=== PATIENT | female | born 1975 | race Caucasian/White ===

== ENCOUNTER 2017-04-18 14:56 | Emergency (ER) | payer BC ==
[~2017-04-18] VITALS: Ht 160 cm; Wt 95.3 kg
--- OUTSIDE RECORDS SUMMARY | 2017-04-18 15:15 | External Medical Summary Rpt ---
Author Author [employer] Organization [employer] Address Unknown Phone Unavailable Purpose Continuity of Care Document - through 2016
--- OUTSIDE RECORDS SUMMARY | 2017-04-18 15:15 | External Medical Summary Rpt ---
Author Author , Organization [employer] Address Unknown Phone Unavailable Purpose Continuity of Care Document - 02-01-2017 through 2016 Problems Code Diagnosis DOS Provider Status Z12.31 ENCOUNTER 02-01-2017 FOR SCREENING MAMMOGRAM FOR MALIGNANT NEOPLASM OF BREAST
--- OUTSIDE RECORDS SUMMARY | 2017-04-18 15:15 | External Medical Summary Rpt ---
Author Author MARGARITA Nicole, [employer] Organization [employer] Address Unknown Phone Unavailable
--- OUTSIDE RECORDS SUMMARY | 2017-04-18 15:15 | External Medical Summary Rpt ---
Demographics Preferred Language Ivorian Marital Status Unknown Baptism Affiliation Unknown Race Unknown Ethnic Group Unknown Author Author , Organization [employer] Address Unknown Phone Unavailable Purpose Continuity of Care Document - through 2016 Immunization No patient found.
--- OUTSIDE RECORDS SUMMARY | 2017-04-18 15:15 | External Medical Summary Rpt ---
Demographics Preferred Language Australian Marital Status Unknown Mu-Ism Affiliation Unknown Race Unknown Ethnic Group Unknown Author Author , Organization [employer] Address Unknown Phone Unavailable Purpose Continuity of Care Document - through 2016 Immunization No patient found.
[2017-04-18 15:18] LABS: URINE BILIRUBIN - DIPSTICK NEGATIVE (NEG)
[2017-04-18 15:19] LABS: URINE BLOOD NEGATIVE (NEG)
[2017-04-18] MEDS ORDERED: WELLBUTRIN XL300 MG PO (15:34)
[2017-04-18] MEDS ORDERED: GABAPENTIN300 MG PO (15:34)
[2017-04-18 15:47] LABS: HEMOGLOBIN 14.1 g/dL (12.2-16.2); LYMPH # 1.8 K/mm3 (0.7-4.5); LYMPH % 26.5 % (10-50.0)
--- NOTE | 2017-04-18 16:32 | RADIOLOGY REPORT PS360 ---
CT ABD PELVIS W/ CONTRAST COMPARISON: None HISTORY: Right lower quadrant pain for several months TECHNIQUE: Multiaxial scans obtained from the hemidiaphragms the pelvic floor and were performed with IV contrast only. Sagittal and coronal reformats were evaluated as well. FINDINGS: The lower lung lopez are clear. The liver spleen stomach and pancreas appear normal, there has been a previous cholecystectomy. The adrenal glands are normal. The kidneys are normal size and show symmetrical function both appearing normal. The small bowel unremarkable. The appendix is well-visualized and partially air-filled and normal in caliber. There is moderate scattered stool in ascending and transverse colon. The uterus and adnexa are normal. The urinary bladder is well filled and appears normal. There is no free fluid in the pelvis. IMPRESSION: Essentially unremarkable CT scan abdomen and pelvis, no acute abdominal or pelvic pathology identified
--- NOTE | 2017-04-18 16:52 | Emergency Room Report ---
History of Present Illness Time Seen by [id number] Presenting Problem in Triage Pt arrived:Walked Presenting Problem:ABD DISCOMFORT THAT HAS INCR OVERNIGHT. 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 Y Clinical Suspician of Infection? N Mental Status: 1 - Regular (Normal Baseline) Sepsis Risk:Low Sepsis Risk Have you (or family members/close friends) recently traveled outside the [place]? N If Yes, where/when: Have you had exposure to infectious disease within the past month? TB? Other? Specify: Source patient, RN notes reviewed, family, old records Exam Limitations no limitations Comment pt with ongoing back pain over the last few weeks which rad to her ant abd/groin and is worse with mov and no fever/rash or support services specialist sx Cardiac Chest Pain Chest pain indicative of cardiac No Timing/Duration this evening Severity moderate ALLERGIES Coded Allergies: Penicillins (Mild, 04/18/17) sulfamethoxazole (From BACTRIM) (Mild, 04/18/17) trimethoprim (From BACTRIM) (Mild, 04/18/17) Home Medications Reported Medications BUPROPION HCL (Wellbutrin XL 300MG) 300 MG PO DAILY Gabapentin (Gabapentin 300MG) 300 MG PO QHS History Medical History General CAD? No Angina: No [place]: No Hypertension? No Hyperlipidemia? No CHF? No DVT? No PE? No COPD? No Asthma? No Anemia? No GERD? No Gastric ulcers? No GI Bleed? No Hernia? No Thyroid Problems? No Hypothyroidism? No CVA? No Seizures? No Diabetes? No Renal Insuffiency? No End Stage Renal Disease? No UTI? No Stones? No BPH? No GB Disease: Yes Nephritic Syndrome? No Asplenia? No Hepatitis? No Sickle Cell Disease? No Arthritis? No Migraines? No Cataracts? No Glaucoma? No MRSA? No HIV? No TB? No Anxiety? No Depression? No Cancer? No More? 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 Respiratory denies cough, denies shortness of breath, denies wheezing Cardiovascular denies chest pain, denies palpitations, denies syncope Gastrointestinal denies abdominal pain, denies diarrhea, denies vomiting Genitourinary denies: dysuria, frequency, hesitancy, hematuria. Musculoskeletal see HPI, denies back pain, denies joint pain, denies joint swelling, denies neck pain, other Skin denies rash Psychiatric/Neurological denies headache, denies seizure Physical Exam Vital Signs Vital Signs Date Time Temp Pulse Resp B/P Pulse O2 O2 Flow FiO2 Ox Delivery Rate 04/18 1705 18 04/18 1531 98.4 94 18 158/90 98 06/04 1511 98.4 102 18 147/94 100 - WBC >12,000 or <4,000 or 10% bands? 2 or more SIRS Criteria Met? B/P:158/90 MAP:112 Creatinine >2.0? UA output<0.5ml/kg/hr for 2 hrs? Platelet count >100,000? Lactate >2.0mmol/1? INR >1.2 or PTT > than 60 sec? Evidence of Organ Dysfunction? Provider documented clinical suspician of infection? N Sepsis Criteria Count: 1 Sepsis Risk: Low Sepsis Risk General Appearance no apparent distress Eye Exam - bilateral eye PERRL, bilateral eye EOMI Ear, Nose, Throat normal ENT inspection Neck supple Respiratory Status No: respiratory distress. Cardiovascular regular rate/rhythm Peripheral Pulses Pulses normal Yes Gastrointestinal soft, no organomegaly, no pulsatile mass, no guarding, no rebound Back no vertebral tenderness, bowel/bladder continent, decreased range of motion , strt leg raising(R)-NML, rt si jt pain Extremities normal range of motion, normal inspection Strength 4 Upper Ext (L), 4 Upper Ext (R), 4 Lower Ext (L), 4 Lower Ext (R) Neurologic alert, admissions clinician II-XII nml as tested, no motor/sensory deficits Reflexes Reflexes normal No Mental status normal mood/affect Skin no rash cons.w/shingles Medical Decision Making LABS/Meds/Orders Pt receiving controlled substance in ED? No Results/Orders Laboratory Tests 04/18/17 1530: ESR Pending 04/18/17 1530: Sodium 138, Potassium 3.7, Chloride 102, Carbon Dioxide 28, BUN 10, Creatinine 0.8, Estimated Creat Clear 138, Estimated GFR (MDRD) 79, Glucose 111 H, Calcium 8.8, Total Bilirubin 0.3, AST 10 L, ALT 25, Alkaline Phosphatase 94, Total Protein 7.7, Albumin 3.9, Globulin 3.8 H, Albumin/Globulin Ratio 1.0 L, Amylase 67, Lipase 186, WBC 6.8, RBC 4.58, Hgb 14.1, Hct 42.1, MCV 92.0, RDW 12.4, Plt Count 180, MPV 7.2 L, Gran % 67.1, Gran # 4.5, Lymphocytes % 26.5, Monocytes % 3.7, Eosinophils % 2.3, Basophils % 0.4, Lymphocytes # 1.8, Monocytes # 0.3, Eosinophils # 0.2, Basophils # 0.0, PUBS MCHC 33.6, MCH 30.9 04/18/17 1504: Urine Color YELLOW, Urine Appearance Clear, Urine pH 6.0, Ur Specific [place] 1.010, Urine Protein NEGATIVE, Urine Ketones NEGATIVE, Urine Blood NEGATIVE, Urine Nitrate NEGATIVE, Urine Bilirubin NEGATIVE, Urine Urobilinogen 0.2, Ur Leukocyte Esterase NEGATIVE, Urine Glucose NEGATIVE Current Medication Orders Sig/Alison Start time Last Medication Dose Route Stop Time Status Admin Ketorolac 30 MG ONCE ONE 04/18 1700 DC 04/18 Tromethamine IV 04/18 1701 1705 Methylprednisolone 125 MG ONCE ONE 04/18 1700 DC / Sodium Succinate IV 04/18 1701 1704 Methylprednisolone 0 .STK-MED ONE 04/18 1658 DC Sodium Succinate .ROUTE Ketorolac 0 .STK-MED ONE 04/18 1657 DC Tromethamine .ROUTE Iopamidol 75 ML ONCE ONE 04/18 1615 UNV 04/18 IV 04/18 1616 1608 Sodium Chloride 10 ML PRN PRN 04/18 1615 UNV 04/18 IV 04/18 1738 1608 Sodium Chloride 10 ML PRN PRN 04/18 1545 AC IV 04/19 1538 Orders Procedure Date/time Status DIET-NOTHING BY MOUTH 04/18 D Active SED RATE 04/18 1651 Active C-REACTIVE PROTEIN 04/[address] ABD/PELVIS REQ 04/18 1538 Complete IV SALINE LOCK 04/18 1538 Active LIPASE 04/18 1538 Complete CBC WITH AUTO DIFF 04/18 1538 Complete CHEM 12 PROFILE 04/18 1538 Complete AMYLASE 04/18 1538 Complete UTC URINE 04/18 1523 Active UTC URINE DIPSTICK 04/18 1504 Complete XRAY/CT/US XRAY/CT/US CT abdomen, pelvis CT interpretation by discussed w/radiologist Time results known: 1704 CT Results normal/NAD Departure Departure Time of Disposition 1704 Disposition DC Home or Self Care(routine) Clinical Impression Primary Impression: Back pain Qualifiers: Back pain location: low back pain Chronicity: acute Back pain laterality: right Sciatica presence: without sciatica Qualified Code: M54.5 - Low back pain Condition STABLE Referrals JORGE A BULLARD (Family) Patient Instructions DI for Low Back Pain Additional Instructions use meds and see pcp for follow up Discharge Counseling Counseled pt/family regarding diagnosis, test results, medications/RX, follow up needs Prescriptions Current Visit Scripts Prednisone (Prednisone 20MG) 20 MG PO BID #10 TAB ED Critical Care Critical Care No at 1706
--- NOTE | 2017-04-18 16:52 | Emergency Room Report ---
History of Present Illness Time Seen by [id number] Presenting Problem in Triage Pt arrived:Walked Presenting Problem:ABD DISCOMFORT THAT HAS INCR OVERNIGHT. 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 Y Clinical Suspician of Infection? N Mental Status: 1 - Regular (Normal Baseline) Sepsis Risk:Low Sepsis Risk Have you (or family members/close friends) recently traveled outside the [place]? N If Yes, where/when: Have you had exposure to infectious disease within the past month? TB? Other? 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 No Angina: No [place]: No Hypertension? No Hyperlipidemia? No CHF? No DVT? No PE? No COPD? No Asthma? No Anemia? No GERD? No Gastric ulcers? No GI Bleed? No Hernia? No Thyroid Problems? No Hypothyroidism? No CVA? No Seizures? No Diabetes? No Renal Insuffiency? No End Stage Renal Disease? No UTI? No Stones? No BPH? No GB Disease: Yes Nephritic Syndrome? No Asplenia? No Hepatitis? No Sickle Cell Disease? No Arthritis? No Migraines? No Cataracts? No Glaucoma? No MRSA? No HIV? No TB? No Anxiety? No Depression? No Cancer? No More? 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 Respiratory denies cough, denies shortness of breath, denies wheezing Cardiovascular denies chest pain, denies palpitations, denies syncope Gastrointestinal denies abdominal pain, denies diarrhea, denies vomiting Genitourinary denies: dysuria, frequency, hesitancy, hematuria. Musculoskeletal see HPI, denies back pain, denies joint pain, denies joint swelling, denies neck pain, other Skin denies rash Psychiatric/Neurological denies headache, denies seizure Physical Exam Vital Signs Vital Signs Date Time Temp Pulse Resp B/P Pulse O2 O2 Flow FiO2 Ox Delivery Rate 04/18 1705 18 04/18 1531 98.4 94 18 158/90 98 06/04 1511 98.4 102 18 147/94 100 - WBC >12,000 or <4,000 or 10% bands? 2 or more SIRS Criteria Met? B/P:158/90 MAP:112 Creatinine >2.0? UA output<0.5ml/kg/hr for 2 hrs? Platelet count >100,000? Lactate >2.0mmol/1? INR >1.2 or PTT > than 60 sec? Evidence of Organ Dysfunction? Provider documented clinical suspician of infection? N Sepsis Criteria Count: 1 Sepsis Risk: Low Sepsis Risk General Appearance no apparent distress Eye Exam - bilateral eye PERRL, bilateral eye EOMI Ear, Nose, Throat normal ENT inspection Neck supple Respiratory Status No: respiratory distress. 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 No Results/Orders Laboratory Tests 04/18/17 1530: ESR Pending 04/18/17 1530: Sodium 138, Potassium 3.7, Chloride 102, Carbon Dioxide 28, BUN 10, Creatinine 0.8, Estimated Creat Clear 138, Estimated GFR (MDRD) 79, Glucose 111 H, Calcium 8.8, Total Bilirubin 0.3, AST 10 L, ALT 25, Alkaline Phosphatase 94, Total Protein 7.7, Albumin 3.9, Globulin 3.8 H, Albumin/Globulin Ratio 1.0 L, Amylase 67, Lipase 186, WBC 6.8, RBC 4.58, Hgb 14.1, Hct 42.1, MCV 92.0, RDW 12.4, Plt Count 180, MPV 7.2 L, Gran % 67.1, Gran # 4.5, Lymphocytes % 26.5, Monocytes % 3.7, Eosinophils % 2.3, Basophils % 0.4, Lymphocytes # 1.8, Monocytes # 0.3, Eosinophils # 0.2, Basophils # 0.0, PUBS MCHC 33.6, MCH 30.9 04/18/17 1504: Urine Color YELLOW, Urine Appearance Clear, Urine pH 6.0, Ur Specific [place] 1.010, Urine Protein NEGATIVE, Urine Ketones NEGATIVE, Urine Blood NEGATIVE, Urine Nitrate NEGATIVE, Urine Bilirubin NEGATIVE, Urine Urobilinogen 0.2, Ur Leukocyte Esterase NEGATIVE, Urine Glucose NEGATIVE Current Medication Orders Sig/Alison Start time Last Medication Dose Route Stop Time Status Admin Ketorolac 30 MG ONCE ONE 04/18 1700 DC 04/18 Tromethamine IV 04/18 1701 1705 Methylprednisolone 125 MG ONCE ONE 04/18 1700 DC / Sodium Succinate IV 04/18 1701 1704 Methylprednisolone 0 .STK-MED ONE 04/18 1658 DC Sodium Succinate .ROUTE Ketorolac 0 .STK-MED ONE 04/18 1657 DC Tromethamine .ROUTE Iopamidol 75 ML ONCE ONE 04/18 1615 UNV 04/18 IV 04/18 1616 1608 Sodium Chloride 10 ML PRN PRN 04/18 1615 UNV 04/18 IV 04/18 1738 1608 Sodium Chloride 10 ML PRN PRN 04/18 1545 AC IV 04/19 1538 Orders Procedure Date/time Status DIET-NOTHING BY MOUTH 04/18 D Active SED RATE 04/18 1651 Active C-REACTIVE PROTEIN 04/[address] ABD/PELVIS REQ 04/18 1538 Complete IV SALINE LOCK 04/18 1538 Active LIPASE 04/18 1538 Complete CBC WITH AUTO DIFF 04/18 1538 Complete CHEM 12 PROFILE 04/18 1538 Complete AMYLASE 04/18 1538 Complete UTC URINE 04/18 1523 Active UTC URINE DIPSTICK 04/18 1504 Complete XRAY/CT/US XRAY/CT/US CT abdomen, pelvis CT interpretation by discussed w/radiologist Time results known: 1704 CT Results normal/NAD Departure Departure Time of Disposition 1704 Disposition DC Home or Self Care(routine) Clinical Impression Primary Impression: Back pain Qualifiers: Back pain location: low back pain Chronicity: acute Back pain laterality: right Sciatica presence: without sciatica Qualified Code: M54.5 - Low back pain Condition STABLE Referrals JORGE A BULLARD (Family) Patient Instructions DI for Low Back Pain Additional Instructions use meds and see pcp for follow up Discharge Counseling Counseled pt/family regarding diagnosis, test results, medications/RX, follow up needs Prescriptions Current Visit Scripts Prednisone (Prednisone 20MG) 20 MG PO BID #10 TAB ED Critical Care Critical Care No at 1706
[2017-04-18] MEDS ORDERED: PREDNISONE 20MG20 MG PO (17:06)
[2017-04-18 17:13] VITALS: BP 123/72
== END 2017-04-18 17:13 | disposition home or self-care (01) ==
LOC: UTC 14:56 → ER 15:12
PROVIDERS: Nurse Practitioner Family
DX: M54.5 Low back pain (principal)
CPT/HCPCS: Q9967